=== PATIENT | female | born 1940 | race Caucasian/White ===

== ENCOUNTER → 2018-02-24 | Outpatient (CLI) | payer MEDICARE ==
[~2018-02-24] MED LIST: OMNIPAQUE 350 MG/ML, 100ML BOTTLE ONE
[2018-02-24 12:23] LABS: CREATININE 0.82 mg/dL (0.55-1.02)
== END | disposition home or self-care (01) ==
LOC: RAD 11:22
PROVIDERS: ATTEND Internal Medicine Cardiovascular Disease
DX: R59.9 Enlarged lymph nodes, unspecified (principal); I48.91 Unspecified atrial fibrillation
CPT/HCPCS: 36415; 75572; 82565; Q9967

== ENCOUNTER 2018-03-02 08:39 | Day surgery (SDC) | payer MEDICARE ==
[~2018-03-02] VITALS: Ht 167.6 cm; Wt 84.7 kg
[2018-03-02] MEDS ORDERED: SODIUM CHLORIDE 0.9% 1,000 ML IV SCH (09:03)
[2018-03-02 09:11] VITALS: BP 162/76
[2018-03-02] MEDS ORDERED: OMEG-170 PO (09:20)
[2018-03-02] MEDS ORDERED: PLEASE ENTER HEIGHT AND WEIGHT MC SCH (09:30)
[2018-03-02] MEDS ORDERED: LEVO25TA4 PO (09:30)
[2018-03-02] MEDS ORDERED: MULT-6 PO (09:30)
[2018-03-02] MEDS ORDERED: CHOL100012 PO (09:30)
[2018-03-02] MEDS ORDERED: CALC-35 PO (09:30)
[2018-03-02] MEDS ORDERED: APIX5TAB PO (09:30)
[2018-03-02] MEDS ORDERED: SODIUM CHLORIDE 0.9% 1,000 ML IV ONE (09:30)
[2018-03-02] MEDS ORDERED: DIPH1TAB PO (09:30)
[2018-03-02 09:32] LABS: BASOPHILS # (AUTO) 0.02 x10^3/uL (0-0.1); BASOPHILS % (AUTO) 0 % (0-1); EOSINOPHILS # (AUTO) 0.08 x10^3/uL (0-0.4); EOSINOPHILS % (AUTO) 1 % (1-7); LYMPHOCYTES # (AUTO) 1.39 x10^3/uL (1-3.4); LYMPHOCYTES % (AUTO) 19 % (22-44); MD NO; MEAN CORPUSCULAR HEMOGLOBIN 29.3 pg (27.0-34.8); MEAN CORPUSCULAR HGB CONC 33.5 g/dL (32.4-35.8); MEAN CORPUSCULAR VOLUME 87.5 fL (80-100); MEAN PLATELET VOLUME 8.2 fL (7.4-10.4); MONOCYTES # (AUTO) 0.49 x10^3/uL (0.2-0.8); MONOCYTES % (AUTO) 7 % (2-9); NEUTROPHILS # (AUTO) 5.52 x10^3/uL (1.8-6.8); NEUTROPHILS % (AUTO) 74 % (42-75); PLATELET COUNT 228 x10^3/uL (130-400); RED BLOOD COUNT 4.96 x10^6/uL (3.82-5.3); RED CELL DISTRIBUTION WIDTH 13.8 % (9.6-15.2)
[2018-03-02 09:41] LABS: ANION GAP 5 mmol/L (5-15); CALCIUM 8.7 mg/dL (8.5-10.1); CHLORIDE 108 mmol/L (98-107); CREATININE 0.67 mg/dL (0.55-1.02); INTERNATIONAL NORMALIZED RATIO 1.01 (0.93-1.1); PROTHROMBIN TIME 10.7 Seconds (9.6-11.5)
[2018-03-02] MEDS ORDERED: FENTANYL PF 250 MCG/5ML ONE (10:06)
[2018-03-02] MEDS ORDERED: MIDAZOLAM 1 MG/ML, 2ML ONE (11:07)
[2018-03-02] MEDS ORDERED: PROTAMINE SULFATE 10 MG/ML, 5ML ONE (11:32)
[2018-03-02] MEDS ORDERED: PROPOFOL 10 MG/ML, 20ML ONE (15:37)
[2018-03-02] MEDS ORDERED: ONDANSETRON 2MG/ML, 2ML ONE (15:37)
[2018-03-02] MEDS ORDERED: DEXAMETHASONE 4 MG/ML, 1ML ONE (15:37)
[2018-03-02] MEDS ORDERED: ROCURONIUM 10MG/ML,5ML ONE (15:37)
[2018-03-02 16:45] VITALS: BP 129/80
[2018-03-02] MEDS ORDERED: [UNRECOGNIZED DRUG - REMARK] XX SCH (17:30)
[2018-03-02] MEDS ORDERED: ACETAMINOPHEN 325 MG TABLET PO PRN (17:30)
[2018-03-02] MEDS ORDERED: ONDANSETRON 2MG/ML, 2ML IV PRN (18:00)
[2018-03-02 19:36] VITALS: BP 137/77
[2018-03-02] MEDS: APIXABAN 5 MG TABLET PO SCH (20:26)
[2018-03-02] MEDS ORDERED: HYDROcodone/APAP 5/325 TABLET PO PRN (21:30)
[2018-03-02] MEDS ORDERED: LORATADINE/PSE 5/120MG TAB.ER.12H PO PRN (21:30)
[2018-03-02] MEDS ORDERED: ATORVASTATIN 20 MG TABLET PO SCH (21:30)
[2018-03-02] MEDS ORDERED: TRAZODONE 150MG TABLET PO SCH (21:30)
[2018-03-03 03:19] VITALS: BP_SYST 94; BP_SYST 98; BP_DIAS 40; BP_DIAS 43
[2018-03-03] MEDS ORDERED: CARVEDILOL 25 MG TABLET PO SCH (06:00)
[2018-03-03] MEDS ORDERED: LEVOTHYROXINE 25 MCG TABLET PO SCH (06:00)
[2018-03-03 08:00] VITALS: BP 90/58
[2018-03-03] MEDS: APIXABAN 5 MG TABLET PO SCH (08:41)
[2018-03-03] MEDS ORDERED: COLCHICINE 0.6 MG TABLET PO SCH (09:00)
[2018-03-03] MEDS ORDERED: AMLODIPINE 5 MG TABLET PO SCH (09:00)
[2018-03-03] MEDS ORDERED: PANTOPROZOLE 40MG TABLET PO SCH (09:00)
[2018-03-03] MEDS ORDERED: LOSARTAN 25MG TABLET PO SCH (09:00)
[2018-03-03] MEDS ORDERED: COLC0.6T37 PO (09:31)
[2018-03-03] MEDS ORDERED: PANT40TA5 PO (09:31)
[2018-03-03] MEDS ORDERED: RIVAROXABAN 15 MG TABLET PO SCH (17:00)
== END 2018-03-03 17:09 | disposition home or self-care (01) ==
LOC: CACL 08:39 → 5SO 16:37 → DCLOUNGE 03-03 10:59 → CACL 03-03 11:12
PROVIDERS: ATTEND Internal Medicine Cardiovascular Disease
DX: I48.91 Unspecified atrial fibrillation (principal); I34.0 Nonrheumatic mitral (valve) insufficiency; Z88.1 Allergy status to other antibiotic agents
CPT/HCPCS: 36415; 80048; 85025; 85347; 85610; 85730; 93312; 93321; 93325; J1100; J2250; J2405; J2704; J2720; J3010; 93613; 93621; 93623; 93656; 93662; C1732; C1766; C1893; C1894; G0378; C1730; C1759

== ENCOUNTER 2018-03-27 09:29 | Emergency (ER) | payer MEDICARE ==
[~2018-03-27] VITALS: Ht 167.6 cm; Wt 83.0 kg
[~2018-03-27 09:29] MED LIST changes: +APIX5TAB PO; +CALC-35 PO; +CHOL100012 PO; +COLC0.6T37 PO; +DIPH1TAB PO; +LEVO25TA4 PO; +MULT-6 PO; +OMEG-170 PO; -OMNIPAQUE 350 MG/ML, 100ML BOTTLE ONE; +PANT40TA5 PO
[2018-03-27] MEDS ORDERED: ASPIRIN 81 MG TABLET CHEW ONE (09:50)
[2018-03-27] MEDS ORDERED: ADENOSINE 6 MG/2 ML IVPush ONE (10:00)
[2018-03-27] MEDS ORDERED: SODIUM CHLORIDE FLUSH 10ML SYR IVF ONE (10:00)
[2018-03-27] MEDS ORDERED: ASPIRIN 81 MG TABLET CHEW PO ONE (10:00)
[2018-03-27] MEDS ORDERED: ADENOSINE 6 MG/2 ML ONE ×2 (10:04→10:06)
[2018-03-27 10:05] LABS: BASOPHILS # (AUTO) 0.12 x10^3/uL (0-0.1); BASOPHILS % (AUTO) 1 % (0-1); EOSINOPHILS # (AUTO) 0.08 x10^3/uL (0-0.4); EOSINOPHILS % (AUTO) 1 % (1-7); LYMPHOCYTES # (AUTO) 1.57 x10^3/uL (1-3.4); LYMPHOCYTES % (AUTO) 17 % (22-44); MD NO; MEAN CORPUSCULAR HEMOGLOBIN 29.7 pg (27.0-34.8); MEAN CORPUSCULAR HGB CONC 33.4 g/dL (32.4-35.8); MEAN CORPUSCULAR VOLUME 88.9 fL (80-100); MEAN PLATELET VOLUME 8.6 fL (7.4-10.4); MONOCYTES # (AUTO) 0.67 x10^3/uL (0.2-0.8); MONOCYTES % (AUTO) 7 % (2-9); NEUTROPHILS # (AUTO) 6.74 x10^3/uL (1.8-6.8); NEUTROPHILS % (AUTO) 74 % (42-75); PLATELET COUNT 241 x10^3/uL (130-400); RED BLOOD COUNT 5.24 x10^6/uL (3.82-5.3); RED CELL DISTRIBUTION WIDTH 13.8 % (9.6-15.2)
[2018-03-27 10:18] LABS: ALBUMIN 3.5 g/dL (3.4-5.0); ANION GAP 4 mmol/L (5-15); CHLORIDE 108 mmol/L (98-107); INTERNATIONAL NORMALIZED RATIO 1.08 (0.93-1.1); PROTHROMBIN TIME 11.4 Seconds (9.6-11.5)
[2018-03-27 10:24] LABS: ALANINE AMINOTRANSFERASE 22 U/L (12-78); ALKALINE PHOSPHATASE 60 U/L (45-117); BILIRUBIN,TOTAL 0.7 mg/dL (0.2-1.0); CREATININE 0.84 mg/dL (0.55-1.02); TROPONIN I < 0.015 ng/mL (0.000-0.045)
[2018-03-27] MEDS ORDERED: PROPOFOL 10 MG/ML, 20ML ONE (11:11)
[2018-03-27] MEDS ORDERED: PROPOFOL 10 MG/ML, 20ML IVPush ONE (11:30)
[2018-03-27 12:23] VITALS: BP 120/66
--- NOTE | 2018-03-27 12:24 | NUR ---
Patient given discharge instructions and they have confirmed that they understand the instructions. Patient ambulatory with steady gait.
== END 2018-03-27 12:24 | disposition home or self-care (01) ==
LOC: ED 11:08
DX: I48.92 Unspecified atrial flutter (principal)
CPT/HCPCS: 36415; 71045; 80053; 83605; 83880; 84484; 85025; 85610; 92960; 93005; 96374; 99285; J0153